=== PATIENT | male | born 1950 | race Caucasian/White ===

== ENCOUNTER 2017-01-07 14:08 | Emergency (ER) | payer MEDICARE ==
[2017-01-07 14:55] LABS: BASOPHIL# 0.1 X 10^3uL (0.0-0.1); BASOPHILS 0.9 % (0.0-2.0); EOSINOPHILS 2.9 % (0.0-6.0); EOSINOPHILS# 0.2 X 10^3uL (0.0-0.4); HEMATOCRIT 47.6 % (42.0-54.0); HEMOGLOBIN 16.4 g/dL (14.0-18.0); LYMPHOCYTES 17.9 % (20.0-40.0); LYMPHOCYTES# 1.1 X 10^3uL (0.8-3.8); MEAN CELL VOLUME 89.1 fL (80.0-100.0); MEAN CORPUS. HGB CONCENTRATION 34.6 g/dL (32.0-36.0); MEAN CORPUSCULAR HEMOGLOBIN 30.8 pg (29.0-35.0); MEAN PLATELET VOLUME 7.5 fL (7.4-10.4); MONOCYTES 6.7 % (2.0-10.0); MONOCYTES# 0.4 X 10^3uL (0.2-1.0); NEUTROPHILS 71.6 % (54.0-75.0); NEUTROPHILS# 4.1 X 10^3uL (2.6-6.7); PLATELET COUNT 215 X 10^3uL (130-440); RED BLOOD COUNT 5.34 X 10^6uL (4.20-6.10); RED CELL DISTRIBUTION WIDTH 12.3 % (11.5-14.5); WHITE BLOOD COUNT 5.9 X 10^3uL (3.9-10.7)
[2017-01-07 14:59] LABS: BLOOD UREA NITROGEN 19 mg/dL (9-20); CALCIUM 9.4 mg/dL (8.4-10.2); CHLORIDE 103 mmol/L (98-107); CREATININE 0.8 mg/dL (0.7-1.3); EST GLOMERULAR FILTRATION RATE > 60 mL/min; GLUCOSE 129 mg/dL (70-100); MAGNESIUM 2.1 mg/dL (1.6-2.3); POTASSIUM 3.9 mmol/L (3.5-5.1); SODIUM 138 mmol/L (137-145)
[2017-01-07 15:11] LABS: TROPONIN I < 0.012 ng/mL (0.00-0.034)
--- NOTE | 2017-01-07 16:39 | ER PHYSICIAN DOCUMENTATION ---
Physician Documentation [facility] Name:Lion Castellanos Age:66 yrs Sex:Male :1950 Arrival Date:01/07/2017 Time:14:08 BedTrauma C Private MD:Johnathan Sanchez EDhaydeeTashi Disposition: 01/07/17 15:40 Discharged to Home/Self Care. Impression: Palpitations. - Condition is Good. - Discharge Instructions: PALPITATIONS. - Medical Reconciliation form form. - Follow up: Johnathan Sanchez MD; When: As needed; Reason: Worsening of condition. - Problem is new. - Symptoms have improved. HPI: 01/07 15:34 This 66 yrs old Male presents to ER via Private Vehicle with complaints of sc Dizziness. 15:35 The patient presents with a history of irregular heart beat. Context: The symptoms sc occur without known cause. Onset: The symptom(s)/episode began/occurred 2 week(s) ago. Duration: The patient or guardian reports multiple episodes, that are intermittent. Modifying factors: The symptoms are aggravated by nothing. The symptoms are alleviated by nothing. Associated signs and symptoms: The patient has no apparent associated signs or symptoms, Pertinent negatives: anxiety, chest pain, SOB. Historical: - Allergies: PENICILLINS; - Home Meds: 1. finasteride oral 2. tadalafil oral 3. Aspirin Oral 4. Calcium Carbonate Oral 5. Vitamin D Oral 6. fluticasone 7. glucosamine-chondroitin oral - PSHx: degenerative disc disease neck; benign hypertrophic prostate; - Tetanus: < 10 years. - Ebola Screening: : Patient negative for fever greater than or equal to 101.5 degrees Fahrenheit, and additional compatible Ebola Virus Disease symptoms. Patient denies exposure to infectious person. Patient denies travel to an Ebola-affected area in the 21 days before illness onset. No symptoms or risks identified at this time. . - Immunization history: Pneumococcal vaccine is up to date, Flu Vaccine < 1 year. - Social history: Smoking status: Patient states was never smoker of tobacco. Patient uses alcohol Patient/guardian denies using marijuana. ROS: 15:36 Constitutional: Negative for fever, chills, and weight loss. sc Eyes: Negative for injury, pain, redness, and discharge. ENT: Negative for injury, pain, and discharge. Neck: Negative for injury, pain, and swelling. Respiratory: Negative for shortness of breath, cough, wheezing, and pleuritic chest pain. Back: Negative for injury and pain. Skin: Negative for injury, rash, and discoloration. 15:36 Neuro: Negative for headache, weakness, numbness, tingling, and seizure. sc 15:36 Cardiovascular: Positive for palpitations, Negative for chest pain, edema, orthopnea. Exam: Constitutional: This is a well developed, well nourished patient who is awake, alert, and in no acute distress. Head/Face: Normocephalic, atraumatic. Eyes: Pupils equal round and reactive to light, extra-ocular motions intact. Lids and lashes normal. Conjunctiva and sclera are non-icteric and not injected. Cornea within normal limits. Periorbital areas with no swelling, redness, or edema. ENT: Nares patent. No nasal discharge, no septal abnormalities noted. Tympanic membranes are normal and external auditory canals are clear. Oropharynx with no redness, swelling, or masses, exudates, or evidence of obstruction, uvula midline. Mucous membranes moist. Neck: Trachea midline, no thyromegaly or masses palpated, and no cervical lymphadenopathy. Supple, full range of motion without nuchal rigidity, or vertebral point tenderness. No meningismus. Chest/axilla: Normal chest wall appearance and motion. Nontender with no deformity. No lesions are appreciated. Cardiovascular: Regular rate and rhythm with a normal S1 and S2. No gallops, murmurs, or rubs. Normal PMI, no JVD. No pulse deficits. Respiratory: Lungs have equal breath sounds bilaterally, clear to auscultation and percussion. No rales, rhonchi or wheezes noted. No increased work of breathing, no retractions or nasal flaring. Abdomen/GI: Soft, non-tender, with normal bowel sounds. No distension or tympany. No guarding or rebound. No evidence of tenderness throughout. Back: No spinal tenderness. No costovertebral tenderness. Full range of motion. 15:37 Skin: Warm, dry with normal turgor. Normal color with no rashes, no lesions, and no sc evidence of cellulitis. 15:40 Respiratory: the patient does not display signs of respiratory distress, il Respirations: normal, Breath sounds: are normal. Vital Signs: 14:15 BP 129 / 80; Pulse 89; Resp 18; Temp 97.7(O); Pulse Ox 90% on R/A; Weight 68.04 kg; sj Height 5 ft. 9 in. (175.26 cm); Pain 0/10; 14:45 BP 126 / 86; Pulse 86; Resp 18; Pulse Ox 91% on R/A; Pain 0/10; sj 15:15 BP 130 / 86; Pulse 87; Resp 15; Pulse Ox 91% ; Pain 0/10; sj 15:45 BP 117 / 90; Pulse 75; Resp 16; Pulse Ox 91% on R/A; sj 16:30 BP 128 / 78; Pulse 73; Resp 15; Pulse Ox 91% on R/A; Pain 0/10; sj 14:15 Body Mass Index 22.15 (68.04 kg, 175.26 cm) MDM: 14:40 Patient medically screened. il 15:37 Differential diagnosis: arrythmia. Data reviewed: vital signs, nurses notes, lab test il result(s), EKG, and as a result, I will discharge patient. Counseling: I had a detailed discussion with the patient and/or guardian regarding: the historical points, exam findings, and any diagnostic results supporting the discharge/admit diagnosis, lab results, the need for outpatient follow up, to return to the emergency department if symptoms worsen or persist or if there are any questions or concerns that arise at home. 15:41 ECG:. il 16:47 EKG attached 01/07 15:00 Order name: CBC AUTO DIF, MDIF/RMOR IF IND; Complete Time: 15:34 EDGA 01/07 15:33 Interpretation: Normal. il 01/07 15:12 Order name: BASIC METABOLIC PANEL; Complete Time: 15:34 EDMS 03 15:33 Interpretation: Normal. il 01/07 15:12 Order name: MAGNESIUM; Complete Time: 15:34 EDGA 01/07 15:34 Interpretation: Normal. il 01/07 15:12 Order name: TROPONIN I; Complete Time: 15:34 EDGA 03 15:34 Interpretation: Normal. il EC:41 Rate is 74 beats/min. Rhythm is irregular, Normal Sinus Rhythm with PACs. QRS [place] is il Normal. MD interval is normal. QRS interval is normal. QT interval is normal. No Q waves. T waves are Normal. No ST changes noted. Clinical impression: Normal ECG and No evidence of ischemia. Interpreted by me. Reviewed by me. Dispensed Medications: No medications were administered Signatures: Tashi Singleton MD MD sc Roberts, Leslie, RN RN Carmencita Lynn
--- NOTE | 2017-01-07 16:39 | ER NURSING DOCUMENTATION ---
Nurse's Notes [facility] Name:Lion Castellanos Age:66 yrs Sex:Male :1950 Arrival Date:01/07/2017 Time:14:08 BedTrauma C Private MD:Johnathan Sanchez Diagnosis:Palpitations Presentation: 01/07 14:28 Presenting complaint: Patient states: Episodic two week history of feeling "fluttering" sj in left chest. Denies chest pain or SOB. Gets slightly light-headed. Came on today at lunch but denies feeling it now. No cardiac history. 14:28 Acuity: [place] 3 sj 14:43 Transition of care: Home. 14:43 Method Of Arrival: Private Vehicle 14:44 Notified ED Physician of patient's arrival and CC Dr. Singleton notified. Triage Assessment: 14:50 General: Appears in no apparent distress, Behavior is cooperative, pleasant. Pain: sj Denies pain. Neuro: Level of Consciousness is awake, alert, Oriented to person, place, time, event. Cardiovascular: Capillary refill < 3 seconds Heart tones S1 S2 Chest pain is denied. Respiratory: Airway is patent Respiratory effort is even, unlabored, Respiratory pattern is regular, Breath sounds are clear bilaterally. Historical: - Allergies: PENICILLINS; - Home Meds: 1. finasteride oral 2. tadalafil oral 3. Aspirin Oral 4. Calcium Carbonate Oral 5. Vitamin D Oral 6. fluticasone 7. glucosamine-chondroitin oral - PSHx: degenerative disc disease neck; benign hypertrophic prostate; - Tetanus: < 10 years. - Ebola Screening: : Patient negative for fever greater than or equal to 101.5 degrees Fahrenheit, and additional compatible Ebola Virus Disease symptoms. Patient denies exposure to infectious person. Patient denies travel to an Ebola-affected area in the 21 days before illness onset. No symptoms or risks identified at this time. . - Immunization history: Pneumococcal vaccine is up to date, Flu Vaccine < 1 year. - Social history: Smoking status: Patient states was never smoker of tobacco. Patient uses alcohol Patient/guardian denies using marijuana. Screenin:52 Infectious Disease Risk None. Abuse screen: Denies threats or abuse. Denies injuries sj from another. Nutritional screening: No deficits noted. Assessment: 14:51 See Triage Assessment done by same RN. Vital Signs: 14:15 BP 129 / 80; Pulse 89; Resp 18; Temp 97.7(O); Pulse Ox 90% on R/A; Weight 68.04 kg; sj Height 5 ft. 9 in. (175.26 cm); Pain 0/10; 14:45 BP 126 / 86; Pulse 86; Resp 18; Pulse Ox 91% on R/A; Pain 0/10; sj 15:15 BP 130 / 86; Pulse 87; Resp 15; Pulse Ox 91% ; Pain 0/10; sj 15:45 BP 117 / 90; Pulse 75; Resp 16; Pulse Ox 91% on R/A; sj 16:30 BP 128 / 78; Pulse 73; Resp 15; Pulse Ox 91% on R/A; Pain 0/10; sj 14:15 Body Mass Index 22.15 (68.04 kg, 175.26 cm) ED Course: 14:09 Patient arrived in ED. ds 14:09 Johnathan Sanchez MD is Private Physician. ds 14:28 Carmencita Edwards is Primary Nurse. 14:29 Triage completed. 14:40 Tashi Singleton MD is Attending Physician. nc 14:52 Valuables Remains with patient Patient has correct armband on for positive sj identification. Placed in gown. Bed in low position. Call light in reach. Side rails up X 1. electronic device monitor on. Pulse ox on. NIBP on. 14:52 EKG done. (by ED staff). Reviewed by Tashi Singleton MD. Inserted peripheral IV: 22 gauge in sj right hand and blood collected. Missed attempts: 20 gauge X 1 in right forearm. 15:37 Johnathan Sanchez MD is Referral Physician. sc 16:47 EKG attached Administered Medications: No medications were administered Outcome: 15:40 Discharge ordered by . sc 16:10 Discharged to home ambulatory. 16:10 Condition: stable 16:10 Instructed on discharge instructions, follow up and referral plans. Demonstrated understanding of instructions. 16:38 Patient left the ED. lpr 01/09 11:17 Discharge F/U Call: Spoke with: patient. Are you having any pain? no. Did your rs discharge instructions answer all of your questions? yes Have you made a f/u appointment? yes Overall Care on a scale of 1-10 with 10 being the best care, you rate our care as: the rating of 7. What is the one thing you feel we could do to improve? Patient's answer: Nothing Signatures: Penny Albert RN RN rs Srot, Deidra, Reg Reg ds Chew, Scott, MD MD sc Roberts, Leslie, RN RN lpr Janzen, Sarah sj
== END 2017-01-07 16:39 | disposition home or self-care (01) ==
LOC: ER 14:08
DX: R00.2 Palpitations (principal); Z79.82 Long term (current) use of aspirin; Z79.899 Other long term (current) drug therapy
CPT/HCPCS: 80048; 83735; 84484; 85025; 93005; 93010; 99284